=== PATIENT | male | born 1935 | race Caucasian/White ===

== ENCOUNTER 2016-07-11 23:39 | Emergency (ER) | payer MEDICARE, OTHER ==
[2016-07-12 00:31] LABS: HEMOGLOBIN 12.8 gm/dl (14.0-17.5); RED BLOOD COUNT 4.18 M/UL (4.20-5.50); WHITE BLOOD COUNT 11.5 K/UL (4.5-11.0)
[2016-07-12 00:52] LABS: BUN/CREATININE RATIO 18 (0-10)
[2016-10-29] MEDS ORDERED: METOPROLOL SUCC25 MG PO (10:41)
[2016-10-29] MEDS ORDERED: LASIX20 MG PO (10:41)
[2016-10-29] MEDS ORDERED: FINASTERIDE5 MG PO (10:42)
[2016-10-29] MEDS ORDERED: TAMSULOSIN HCL0.4 MG PO (10:42)
[2016-10-29] MEDS ORDERED: ELIQUIS5 MG PO (10:43)
[2016-10-29] MEDS ORDERED: PROTONIX40 MG PO (10:44)
[2016-10-29] MEDS ORDERED: ASPIR 8181 MG PO (10:45)
[2016-10-29] MEDS ORDERED: PRAVASTATIN SOD40 MG PO (10:45)
[2016-10-29] MEDS ORDERED: NASOCORT (10:46)
[2016-10-29] MEDS ORDERED: TUDORZA PRESS400 MCG INH (10:47)
[2016-10-29] MEDS ORDERED: COMBIVENT0.074 GM/I INH (10:48)
[2016-10-29] MEDS ORDERED: PERFOROMIS20 MCG/2 M INH (10:48)
[2016-10-29] MEDS ORDERED: DIGOXIN125 MCG PO (10:50)
[2016-12-12] MEDS ORDERED: OXYCODONE HCL5 MG PO (11:02)
[2017-01-04] MEDS ORDERED: ZOFRAN8 MG PO (01:45)
== END 2016-07-12 03:05 | disposition home or self-care (01) ==
LOC: ER1 23:39
PROVIDERS: Family Medicine
DX: J10.1 Influenza due to other identified influenza virus with other respiratory manifestations (principal); I10 Essential (primary) hypertension; J45.909 Unspecified asthma, uncomplicated; Z95.1 Presence of aortocoronary bypass graft; Z90.49 Acquired absence of other specified parts of digestive tract; Z88.8 Allergy status to other drugs, medicaments and biological substances; Z88.1 Allergy status to other antibiotic agents; Z85.038 Personal history of other malignant neoplasm of large intestine; Z79.82 Long term (current) use of aspirin; Z87.891 Personal history of nicotine dependence; Z79.899 Other long term (current) drug therapy
CPT/HCPCS: 36415; 71010; 80053; 82550; 82553; 83874; 83880; 84484; 85025; 93005; 94664; 96374; 99285; J2930

== ENCOUNTER 2016-09-25 11:37 | Emergency (ER) | payer MEDICARE, OTHER ==
[2016-09-25 12:09] LABS: HEMOGLOBIN 12.6 gm/dl (14.0-17.5); RED BLOOD COUNT 4.12 M/UL (4.20-5.50); WHITE BLOOD COUNT 11.5 K/UL (4.5-11.0)
[2016-09-25 12:41] LABS: BUN/CREATININE RATIO 26 (0-10)
[2016-10-29] MEDS ORDERED: LASIX20 MG PO (10:41)
[2016-10-29] MEDS ORDERED: METOPROLOL SUCC25 MG PO (10:41)
[2016-10-29] MEDS ORDERED: TAMSULOSIN HCL0.4 MG PO (10:42)
[2016-10-29] MEDS ORDERED: FINASTERIDE5 MG PO (10:42)
[2016-10-29] MEDS ORDERED: ELIQUIS5 MG PO (10:43)
[2016-10-29] MEDS ORDERED: PROTONIX40 MG PO (10:44)
[2016-10-29] MEDS ORDERED: PRAVASTATIN SOD40 MG PO (10:45)
[2016-10-29] MEDS ORDERED: ASPIR 8181 MG PO (10:45)
[2016-10-29] MEDS ORDERED: NASOCORT (10:46)
[2016-10-29] MEDS ORDERED: TUDORZA PRESS400 MCG INH (10:47)
[2016-10-29] MEDS ORDERED: PERFOROMIS20 MCG/2 M INH (10:48)
[2016-10-29] MEDS ORDERED: COMBIVENT0.074 GM/I INH (10:48)
[2016-10-29] MEDS ORDERED: DIGOXIN125 MCG PO (10:50)
[2016-12-12] MEDS ORDERED: OXYCODONE HCL5 MG PO (11:02)
[2017-01-04] MEDS ORDERED: ZOFRAN8 MG PO (01:45)
== END 2016-09-25 13:55 | disposition home or self-care (01) ==
LOC: ER1 11:37
PROVIDERS: Specialist/Technologist Athletic Trainer
DX: I48.91 Unspecified atrial fibrillation (principal); J44.9 Chronic obstructive pulmonary disease, unspecified; I50.9 Heart failure, unspecified; Z88.2 Allergy status to sulfonamides; Z88.8 Allergy status to other drugs, medicaments and biological substances
CPT/HCPCS: 36415; 71010; 80053; 82550; 82553; 83874; 84484; 85025; 85610; 85730; 93005; 99285

== ENCOUNTER → 2016-10-28 | Outpatient (CLI) | payer MEDICARE, OTHER ==
[~2016-10-28] MED LIST: ASPIR 8181 MG PO; COMBIVENT0.074 GM/I INH; DIGOXIN125 MCG PO; ELIQUIS5 MG PO; FINASTERIDE5 MG PO; LASIX20 MG PO; METOPROLOL SUCC25 MG PO; NASOCORT; OXYCODONE HCL5 MG PO; PERFOROMIS20 MCG/2 M INH; PRAVASTATIN SOD40 MG PO; PROTONIX40 MG PO; TAMSULOSIN HCL0.4 MG PO; TUDORZA PRESS400 MCG INH; ZOFRAN8 MG PO
[2016-10-28 11:45] LABS: HEMOGLOBIN 12.3 gm/dl (14.0-17.5); RED BLOOD COUNT 4.09 M/UL (4.20-5.50); WHITE BLOOD COUNT 9.3 K/UL (4.5-11.0)
[2016-10-28 12:11] LABS: BUN/CREATININE RATIO 25 (0-10)
== END ==
LOC: LAB 10:17
PROVIDERS: Internal Medicine Cardiovascular Disease
DX: I11.0 Hypertensive heart disease with heart failure (principal); I50.22 Chronic systolic (congestive) heart failure; R06.02 Shortness of breath; I48.0 Paroxysmal atrial fibrillation; I25.5 Ischemic cardiomyopathy
CPT/HCPCS: 80048; 85025

== ENCOUNTER → 2016-10-29 | Outpatient (CLI) | payer MEDICARE, OTHER ==
[~2016-10-29] VITALS: Ht 182.9 cm; Wt 62.6 kg
== END ==
LOC: CATH 09:52
DX: I48.0 Paroxysmal atrial fibrillation (principal); I11.0 Hypertensive heart disease with heart failure; I50.22 Chronic systolic (congestive) heart failure; J44.9 Chronic obstructive pulmonary disease, unspecified; E78.5 Hyperlipidemia, unspecified; I25.5 Ischemic cardiomyopathy; I25.10 Atherosclerotic heart disease of native coronary artery without angina pectoris; I27.2 Other secondary pulmonary hypertension; I63.9 Cerebral infarction, unspecified; I07.9 Rheumatic tricuspid valve disease, unspecified; Z95.1 Presence of aortocoronary bypass graft; Z95.5 Presence of coronary angioplasty implant and graft; Z95.810 Presence of automatic (implantable) cardiac defibrillator; Z98.890 Other specified postprocedural states; Z87.891 Personal history of nicotine dependence; Z88.2 Allergy status to sulfonamides; Z88.8 Allergy status to other drugs, medicaments and biological substances; Z79.01 Long term (current) use of anticoagulants; Z79.82 Long term (current) use of aspirin; Z79.899 Other long term (current) drug therapy
CPT/HCPCS: 93609; 93650; 99152; 99153; C1733; C1766; J1644; J2250; J3010; J7040